=== PATIENT | female | born 2005 | race Caucasian/White ===

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

== ENCOUNTER 2025-02-04 13:03 | Outpatient (AMB) | payer OTHER, SELFPAY ==
--- NOTE | 2025-02-04 13:17 | A.OFFVIS_ITS ---
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 I initially saw her in 2020 mostly for headaches. She was back stating that she had a seizure after long time. She was in her bed watching television when something happened. She remembered sharp feeling in right occipital area and then she found herself after the spell in a confused state. He was also having frequent headaches, almost daily, and sometime more than once. Pain usually was right frontal. She is presenting for evaluation of a suspected seizure that occurred two nights ago. She reports a history of seizures as a child, but this was the first episode she has had since then. The event occurred while she was watching TV in bed. Prior to the event, she experienced a sensation in her right occipital area, which she describes as a pinched nerve or being hit by a basketball; this sensation has been occurring more frequently of late. She has no memory of the event itself but woke up in a confused state with tingling sensations. She was still in her bed when she regained awareness and denies any fall, physical i njury, or urinary incontinence. The episode was unwitnessed. The patient also reports worsening headaches, which occur almost daily and sometimes two times a day. She indicates the pain is on the right side of her head and notes that applying counter-pressure to the back of her head helps relieve the pressure. She reports being seen for headaches in 2020. 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 She denies having any metal in her body. Review of Systems Narrative Constitutional:?No fever, chills, fatigue, weight loss, or night sweats. HEENT:?No headache, vision changes, hearing loss, nasal congestion, sore throat. Cardiovascular:? Complain of irregular heartbeat Respiratory:?No cough, shortness of breath, wheezing, or hemoptysis. Gastrointestinal:?No nausea, vomiting, abdominal pain, diarrhea, or constipation. Genitourinary:?No dysuria, frequency, incontinence, or hematuria. Musculoskeletal:?No joint pain, stiffness, weakness, or muscle aches. Neurological:? Complain of weakness, numbness tingling, sleep problems, and seizure Psychiatric:? Complain of depression Endocrine:?No heat/cold intolerance, polydipsia, polyuria, or hair/skin changes. Hematologic/Lymphatic:?No easy bruising, bleeding, or lymphadenopathy. Integumentary (Skin):?No rash, lesions, itching, or color changes. Allergic/Immunologic:?No seasonal allergies, hives, or recurrent infections. Physical Exam Neuro Other: Mental Status: Alert and oriented to person, place, and time. Normal attention. Normal spontaneous speech, fluency, and comprehension. No obvious issues with mood and memory. Affect is appropriate. Cranial Nerves: CN II: Visual wolf full to confrontation, visual acuity intact. CN III, IV, : Pupils equal, round, reactive to light and accommodation. Extraocular movements are normal. CN V: Facial sensation is normal. CN VII: Facial movements symmetrical. CN VIII: Hearing intact to bedside conversation is normal. CN IX, X: Palate elevates symmetrically. CN XI: Shoulder shrug and head turn symmetrical. CN XII: Tongue midline without atrophy or fasciculations. Motor: Bulk and tone normal in all extremities. No significant muscle weakness in arms and legs. No drift. Reflexes: Deep tendon reflexes 2+ and symmetric. Plantar response down-going bilaterally. Coordination: [id number] and [id number] testing normal. No dysmetria. Gait and Station: No obvious gait abnormality. No ataxia or instability. Sensory: Intact to light touch, pinprick, and vibration. Romberg is negative. Extrapyramidal: Full facial expressions and blinking. No rigidity. Movements are appropriate with no tremor or abnormality. Speech: Normal; no dysarthria or tremor. Assessment & Plan Assessment & Plan (1) Migraine without aura: Comment: Meds tried: Topamax [place] [facility] [place]: borderline Chiari I, Left occipital lesion, ?d[facility]plasia [facility] August 2020: TST AHI 2, w/o desat MRI brain WO at [facility] in 2005: Mild WM sig abnormalities, ?metabolic do MRI brain WO at [facility] in 2006: Mild WM sig abnormalities in post lobes, ?etiology MRI brain WO at [facility] in 2007: Looks ok but mild WM abnormalities described as befor eMRI brain WO at [facility] in 2013: mild WM hyperintesity close to L post horn, Arnold Chiari 1. Code(s): G43.009 - Migraine without aura, not intractable, without status migrainosus Category: Medical Qualifiers: Status migrainosus presence: without status migrainosus Intractability: not intractable Qualified Code(s): G43.009 - Migraine without aura, not intractable, without status migrainosus (2) Brain lesion: Code(s): G93.9 - Disorder of brain, unspecified Category: Medical Plan Impression: 1. 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 Migraine without aura 4. Depression with family history of mental disorder Recommendations 1. Reassurance and education regular counseling 2. EEG 3. MRI of brain with and without contrast 4. No driving until this issue is diagnosed and managed Orders: Orders MR head/brain wo/w con Today G40.909 - Epilepsy, unspecified, not intractable, without status epilepticus, G93.9 - Disorder of brain, unspecified EEG Routine Today G40.909 - Epilepsy, unspecified, not intractable, without status epilepticus Coding Level of Care Code New Pt Level 4 (02811) Diagnoses Migraine without aura and without status migrainosus, not intractable G43.009 Status migrainosus presence: without status migrainosus Intractability: not intractable Brain lesion G93.9
--- OUTSIDE RECORDS SUMMARY | 2025-02-05 04:37 | XMS_ITS | Clinical Summary ---
Author Organization [facility] [address] [facility] lding Address [address] [place] [address] Phone Care Team Providers Care Cna Hha Name Role Phone Mick Dumont MD Primary Care Provider Allergies No known active allergies Medications blood-glucose meter kit Use as directed for monitoring of low blood sugars 1 each 07/19/19 25 026 Active varenicline tartrate (CHANTIX JV) 0.5 mg (11)- 1 mg (42) tablet Take 0.5 mg by mouth 1 (one) time each day for 3 days (days 1-3), THEN 0.5 mg 2 (two) times a day for 4 days (days 4-7), THEN 1 mg 2 (two) times a day for 12 weeks. 53 tablet 1 08/15/19 25 Active nicotine (NICODERM CQ) 14 mg/[address] 1 PATCH ON THE SKIN 1 TIME EACH DAY AT THE SAME TIME. 42 patch 3 08/27/19 25 Active norethindrone (KINZA,CUONG,HEA THER,MICRONOR) 0.35 mg tablet TAKE 1 TABLET BY MOUTH 1 TIME EACH DAY. 84 tablet 1 10/15/19 25 Active glucose blood test strip Use as directed for monitoring of low blood sugars. Freestyle 100 each 1 11/07/19 25 026 Active lancets lancets Use as directed for monitoring of low blood sugars. Free style 100 each 1 11/07/19 25 Active magnesium oxide (MAG-OX) 400 mg magnesium tablet Take 1 tablet (400 mg total) by mouth 1 (one) time each day. 90 tablet 3 01/22/20 25 Active SUMAtriptan (IMITREX) 50 mg tablet Take 1 tablet (50 mg total) by mouth 1 (one) time if needed for migraine. May repeat dose once in 2 hours if no relief. Do not exceed 2 doses in 24 hours. 90 tablet 1 01/22/20 25 Active topiramate (TOPAMAX) 50 mg tablet Take 1 tablet (50 mg total) by mouth 1 (one) time each day. 90 each 1 01/22/20 25 Active etonogestrel-elut ing contraceptive device (Nexplanon) 68 mg implant subdermal implant Inject 68 mg into the skin Once. 07/15/19 22 025 Discontin ued(Patie nt Discharge ) magnesium oxide (MAG-OX) 400 mg magnesium tablet Take 1 tablet (400 mg total) by mouth 1 (one) time each day. 90 tablet 11/07/19 025 Discontin ued(Reord er) Active Problems Problem Noted Date Diagnosed Date Prediabetes 07/16/2024 Vitamin D deficiency 07/16/2024 ADHD (attention deficit hype ractivity disorder), inattentive type 07/12/2024 Tic disorder 07/12/2024 Chiari malformation type I ([facility] V24, CMS/HCC V28) 06/10/2021 Overview (12/19/2023): Diagnosed in childhood Migraines 06/10/2021 Overview (12/19/2023): Followed by Neuro Darcyx as needed History of learning disability Overview (01/25/2024): DX:History of learning disability Encounters Date Type Department Care Team Description 01/31/2025 Telephone Adult Medicine [address] [phone] Mick Dumont MD 01/21/2025 2:30 PM EST Office Visit Adult Medicine [address] [phone] Mick Dumont MD Hypoglycemia (Primary Dx); Viral warts, unspecified type; Other migraine without status migrainosus, not intractable 11/19/2024 Telephone Adult Medicine [address] [phone] Mick Dumont MD 11/06/2024 1:00 PM EDT Office Visit [address] [phone] Mick Dumont MD Hypomagnesemia (Primary Dx); Hypoglycemia; Tobacco dependency; Chiari malformation type I ([facility] V24, [facility] V28) from Last 3 Months Immunizations Immunization Administration Dates Next Due DTaP (Infanrix) 6wks to less than 7yo ,11/02/2005,01/26/2005,11/23,2004 [id number] (Pentacel) 2mo to less than 5yo 12/15/2005,01/26/2005,2004,07/08 HPV, Quadrivalent 12/11/2015,08/10/2015,06/13/19 16 Hep B, Unspecified 2004 Hepatitis A Pediatric (Havri x; Vaqta) 12mo to less than 19yo 02/09/2009,06/27/2008 IPV Inactivated polio (Ipol) 6wks and older 05/07/2008,01/26/2005,2004,07/08 Influenza Quadravalent, MDCK , 0.5ml, preservative free (Flucelvax) 6mo and older 05/26/2023 Influenza Quadrivalent, 0.5m l, preservative free (Fluarix; FluLaval; Fluzone) ages 6mo and older (Afluria) 3yo and older 12/03/2021,02/10/2021 Influenza trivalent, MDCK, 0 .5mL, preservative free (Flucelvax) 6mo and older 12/21/2023 Influenza trivalent, with pr eservative (Fluzone; Afluria) 6mo and older 01/03/2020 MMR, measles mumps and rubel la Live (Priorix; M-M-R II) 12mo and older 06/27/2008,05/05/2005 Meningococcal B, Recombinant (Bexsero) 16yo to less than 24yo 12/03/2021,07/14/2020 Meningococcal MCV4P 05/06/2020,06/10/2015 Pneumococcal Conjugate Vacci ne, 7 Valent 12/13/2005,01/26/2005,2004,07/08 Pneumococcal polysaccharide 23 valent (Pneumovax 23) 2yo and older 06/10/2015 Tdap Tetanus diptheria acell ular pertussis (Boostrix; Adacel) 7yo and older 01/25/2024 Varicella live (Varivax) 12m o and older 05/07/2008,05/05/2005 Medical History Medical History Date Comments History of learning disability Chiari malformation type I ([facility] V24, [facility] V28) Migraines Family History Medical History Relation Name Comments Schizophrenia Father Other: Epilepsy Father's side 1 Other: Spina Bifida Father's side 2 cousin Diabetes Mother Other: hx tia Mother Breast cancer Neg Hx Ovarian cancer Neg Hx Relation Name Status Comments Father Alive Father's side 1 Alive Father's side 2 cousin Alive Mother Alive Social History Tobacco Use Types Packs/Day Years Used Date Smoking Tobacco: Every Day Smokeless Tobacco: Never Tobacco Cessation:Ready to Q uit: Not Asked; Counseling Given: Not Answered Comments:Vapes nicotine Alcohol Use Standard Drinks/Week Comments Yes 0 (1 standard drink = 0.6 oz pure alcohol) At events with friends, 2-3 drinks Housing Instability Answer Date Recorde d Are you worried that in the next 2 months you may not have stable housing? Patient declined 05/24/2024 Food Access & Nutrition Answer Date Rec orded Do you have access to a vari ety of food including fruits and vegetables? Patient declined 05/24/2024 Health Literacy Answer Date Recorded How often do you need to hav e someone help you when you read instructions, pamphlets, or other written material from your doctor or pharmacy? Patient declined 05/24/2024 Caregiver: How often do you need to have someone help you when you read instructions, pamphlets, or other written material from your doctor or pharmacy? Not on file 025 Financial Risk Answer Date Recorded How hard is it for you to pa y for the very basics like food, housing, medical care, and air conditioning / heating? Somewhat hard 05/24/2024 Transportation Answer Date Recorded Has the lack of transportati on kept you from meetings, work, or from getting things needed for daily living? Patient declined 05/24/2024 Has the lack of transportati on kept you from medical appointments or from getting medications? Patient declined 05/24/2024 Social Isolation Answer Date Recorded How often do you feel lonely or isolated from those around you? Patient declined 05/24/2024 Food Risk Answer Date Recorded Within the past 12 months we worried whether our food would run out before we got money to buy more. Never true 05/24/2024 Within the past 12 months th e food we bought just didn't last and we didn't have money to get more. Never true 05/24/2024 Dependent Care Answer Date Recorded Do you need help finding or paying for care for your loved ones. For example, childhood development teacher or elderly care for an older adult? Patient declined 05/24/2024 Education Answer Date Recorded Do you think completing more education or training, like finishing a GED, going to college, or learning a trade, would be helpful for you? Patient declined 05/24/2024 Employment and Income Answer Date Recor ded During the last four weeks, have you been actively looking for work? Patient declined 05/24/2024 Living Situation Answer Date Recorded What is your living situation? 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 [employer] Not on file Not on file Not on file Obstetrics History Para Term AB IAB SAB Ectopic Multiple Livin g Live Births 0 0 0 0 0 0 0 0 Last Filed Vital Signs Vital Sign Reading Time Taken Comments Blood Pressure 108/73 01/21/2025 2:03 PM EST Pulse 85 01/21/2025 2:03 PM EST Temperature 36.4 C (97.6 F) 01/21/2025 2:03 PM EST Respiratory Rate 16 01/21/2025 2:03 PM EST Oxygen Saturation 97% 01/21/2025 2:03 PM EST Inhaled Oxygen Concentration - - Weight 96.4 kg (212 lb 9.6 oz) 01/21/2025 2:03 P M EST Height 167.6 cm (5' 6 ) 01/21/2025 2:03 PM EST Body Mass Index 34.31 01/21/2025 2:03 PM EST Plan of Treatment Upcoming Encounters Date Type Department Care Team (Late st Contact Info) Description 02/24/2025 10:40 AM EST Consult Endocrinology [address] [phone] Cristian Grey MD [address] [place] [address] 03/07/2025 9:45 AM EST Office Visit Adult Medicine [address] [phone] Mick Dumont MD [address] [place] [address] 05/09/2025 12:30 PM EST Office Visit Adult Medicine [address] [phone] Ladan Jha PA [address] [place], [place] Health Maintenance Due Date Last Done Comments COVID-19 Vaccine ( season) 2024 12/21/2023, 05/26/2023, 10/31/2021, Additional history exists Hepatitis B Vaccines (3 of 3 - 3-dose series) 01/13/2025 11/18/2024, 2004 Social Influencers of Health Screening 05/24/2025 05/24/2024 Annual Well Child Visit (3-21 years old) 07/24/2025 07/24/2024, 01/25/2024 Gonorrhea/Chlamydia Screening 07/24/2025 07/24/2024, 10/03/2023 Cholesterol Screening (Lipid Panel) 01/24/2029 01/25/2024 DTaP,Tdap,and Td Vaccines (7 - Td or Tdap) 01/24/2034 01/25/2024, 06/27/2008, 12/15/2005, Additional history exists Pneumococcal Vaccine: Pediatrics (0 to 5 Years) and At-Risk Patients (6 to 49 Years) (2 of 2 - PCV20 or PCV21) 2054 06/10/2015, 12/13/2005, 01/26/2005, Additional history exists RSV Immunization Adult Patients (1 - 1-dose 75+ series) 2079 HIB Vaccines Completed 12/15/2005, 11/2004, 2004, Additional history exists IPV Vaccines Completed 05/07/2008, 11/19, 01/26/2005, Additional history exists Varicella Vaccines Completed 05/07/2008, 05/05/2005 MMR Vaccines Completed 06/27/2008, 05/05/2005 Hepatitis A Vaccines Completed 02/09/2009, 06/28/19 09 HPV Vaccines Completed 12/11/2015, 07/19, 06/13/2015 Meningococcal ACWY Vaccine Completed 05/06/2020, Meningococcal B Vaccine Completed 12/03/2021, 07/14 Hepatitis C Screening Completed 08/11/2022 HIV Screening Completed 07/24/2024, 08/11/2022 Influenza Vaccine Completed 11/18/2024, , 05/26/2023, Additional history exists Depression Screening Completed 01/21/2025 RSV Immunization Patients Under 20 months Aged Out No longer eligible based on patient's age to complete this topic Procedures Procedure Name Priority Date/Time Associated Diagnosis Comments MAGNESIUM Routine 11/05/2024 1:59 PM EDT Magnesium deficiency VITAMIN D 25 HYDROXY Routine 11/05/2024 1:59 PM EDT Vitamin D deficiency INSULIN, TOTAL Routine 11/05/2024 1:59 PM EDT Hypoglycemia C-PEPTIDE Routine 11/05/2024 1:59 PM EDT Hypoglycemia PROINSULIN Routine 11/05/2024 1:59 PM EDT Hypoglycemia SULFONYLUREA Routine 11/05/2024 1:59 PM EDT Hypoglycemia CORTISOL Routine 11/05/2024 1:59 PM EDT Hypoglycemia HIV 1, 2 ANTIBODY, P24 ANTIGEN WITH REFLEX TO DIFFERENTIATION Routine 07/24/2024 3:06 PM EDT Screen for STD (sexually transmitted disease) CHLAMYDIA TRACHOMATIS AND NEISSERIA GONORRHOEAE PCR Routine 07/24/2024 2:51 PM EDT Screen for STD (sexually transmitted disease) LIPID PANEL WITH REFLEX TO DIRECT LDL Routine 01/25/2024 3:37 PM EST Routine general medical examination at a health care facility HEPATITIS C SCREENING Routine 08/11/2022 from Last 3 Months or Most Recently Relevant to Health Maintenance Results * Sulfonylurea (11/05/2024 1:59 PM EDT) Acetohexamide Negative 20 - 60 ug/mL 11/14/2024 11:05 AM EDT [facility] Chlorpropamide Negative 75 - 250 ug/mL 11/14/2024 11:05 AM EDT [facility] Tolazamide Negative UP TO 80 ug/mL 11/14/2024 11:05 AM EDT [facility] Tolbutamide Negative 40 - 100 ug/mL 11/14/2024 11:05 AM EDT [facility] Glimepiride Negative 80 - 250 ng/mL 11/14/2024 11:05 AM EDT [facility] Glipizide Negative 200 - 1000 ng/mL 11/14/2024 11:05 AM EDT [facility] Glyburide Negative UP TO 1500 ng/mL 11/14/2024 11:05 AM EDT [facility] [place] [address] ng/mL 11/14/2024 11:05 AM EDT [facility] Repaglinide Negative UP TO 200 ng/mL 11/14/2024 11:05 AM EDT [facility] Comment: This test was developed and its performance characteristics determined by [facility]. It has not been cleared or approved by the Food and Drug Administration. Blood Venous blood specimen / Unknown Venipuncture / Unknown 11/05/2024 1:59 PM EDT 11/05/2024 1:59 PM EDT Narrative [facility] - 11/14/2024 11:05 AM EDT Performed at: - [employer] [address] [place] [address] [id number] [employer] Supervisor: Precious Chacon [facility], Phone: [phone] Mick Dumont MD LAB BLOOD ORDERABLES F inal Result Performing Organization Address City/[facility]/ZIP Co de Phone Number [facility] * (ABNORMAL) Insulin, total (11/05/2024 1:59 PM EDT) [facility] Insulin 29.6(H) 3.0 - 25.0 mcIU/mL LAB CHEMISTRY METHOD 11/05/2024 6:12 PM EDT [facility] Blood Venous blood specimen / Unknown Venipuncture / Unknown 11/05/2024 1:59 PM EDT 11/05/2024 1:59 PM EDT Narrative [facility] - 11/05/2024 6:12 PM EDT Insulin reference range based on fasting status. Insulin values vary in non-fasting individuals. us Mick Dumont MD LAB BLOOD ORDERABLES F inal Result Performing Organization Address City/[facility]/ZIP Co de Phone Number [facility] [address] [place] [address], [place] [phone] * Proinsulin (11/05/2024 1:59 PM EDT) Pathologist [facility] Proinsulin, Intact <2.0 <=7.2 pmol/L 11/12/2024 8:23 AM EDT [facility] Comment: Performed By: [employer] [address] [place] [id number] Import/Export Analyst: Donnell Nichols MD, PhD CLIA Number: [id number] Blood Venous blood specimen / Unknown Venipuncture / Unknown 11/05/2024 1:59 PM EDT 11/05/2024 1:59 PM EDT Mick Dumont MD LAB BLOOD ORDERABLES F inal Result [facility] [address] [place] [address] * Vitamin D 25 hydroxy (11/05/2024 1:59 PM EDT) [facility] Vit D, 25-Hydroxy 34.6 30.0 - 80.0 ng/mL LAB CHEMISTRY METHOD 11/05/2024 5:42 PM EDT [facility] Blood Venous blood specimen / Unknown Venipuncture / Unknown 11/05/2024 1:59 PM EDT 11/05/2024 1:59 PM EDT Ladan YANG LAB BLOOD ORDERABLES Final Resul t [facility] [address] [place] [address], [place] [phone] * C-peptide (11/05/2024 1:59 PM EDT) [facility] C-Peptide 3.85 0.80 - 3.90 ng/mL LAB CHEMISTRY METHOD 11/05/2024 5:43 PM EDT [facility] Blood Venous blood specimen / Unknown Venipuncture / Unknown 11/05/2024 1:59 PM EDT 11/05/2024 1:59 PM EDT us Mick Dumont MD LAB BLOOD ORDERABLES F inal Result Performing Organization Address [facility]/ZIP Co de Phone Number [facility] [address] [place] [address], [place] [phone] * (ABNORMAL) Magnesium (11/05/2024 1:59 PM EDT) Magnesium 1.7(L) 1.9 - 2.6 mg/dL LAB CHEMISTRY METHOD 11/05/2024 4:51 PM EDT [facility] Blood Venous blood specimen / Unknown Venipuncture / Unknown 11/05/2024 1:59 PM EDT 11/05/2024 1:59 PM EDT us Ladan YANG LAB BLOOD ORDERABLES Final Resul t Performing Organization Address [facility] de Phone Number [facility] [address] [place] [address], [place] [phone] * Cortisol (11/05/2024 1:59 PM EDT) Cortisol 14.3 mcg/dL LAB CHEMISTRY METHOD 11/05/2024 5:20 PM EDT [facility] Blood Venous blood specimen / Unknown Venipuncture / Unknown 11/05/2024 1:59 PM EDT 11/05/2024 1:59 PM EDT Narrative [facility] - 11/05/2024 5:20 PM EDT CORTISOL REFERENCE RANGE 8 AM SPEC: 5.0-23.0 mcg/dL 4 PM SPEC: 3.0-16.0 mcg/dL 8 PM SPEC: <5.0 mcg/dL us Mick Dumont MD LAB BLOOD ORDERABLES F inal Result Performing Organization Address City/[facility]/ZIP Co de Phone Number [facility] [address] [place] [address], [place] [phone] * HIV 1,2 antibody, p24 antigen with reflex to differentiation (07/24/2024 3:06 PM EDT) Pathologist [facility] HIV Combo AB/AG Negative Negative LAB CHEMISTRY METHOD 07/24/2024 8:20 PM EDT [facility] Blood Venous blood specimen / Unknown Venipuncture / Unknown 07/24/2024 3:06 PM EDT 07/24/2024 3:06 PM EDT Narrative [facility] - 07/24/2024 8:20 PM EDT This assay is a 4th generation assay allowing for earlier detection of HIV infection by detecting the presence of the HIV-1 p24 antigen as well as the traditional antibodies to HIV type 1 (including group O) and type 2. Use of a 4th generation assay is the current CDC recommendation for HIV screening. Mary WOODS LAB BLOOD ORDERABLES Final R esult Performing Organization Address [facility] de Phone Number [facility] [address] [place] [address], [place] [phone] * Chlamydia trachomatis and Neisseria gonorrhoeae molecular study (07/24/2024 2:51 PM EDT) Pathologist [facility] Neisseria gonorrhoeae PCR Negative Negative LAB MOLECULAR DIAGNOSTICS METHOD 07/25/2024 9:51 AM EDT [facility] Chlamydia trachomatis PCR Negative Negative LAB MOLECULAR DIAGNOSTICS METHOD 07/25/2024 9:51 AM EDT [facility] Swab Vaginal structure / Unknown Non-blood Collection / Unknown 07/24/2024 2:51 PM EDT 07/24/2024 2:51 PM EDT Mary Fitzgerald CNM LAB MICROBIOLOGY - GENERAL O RDERABLES Final Result Performing Organization Address [facility]/State/ZIP Co de Phone Number [facility] [address] [place] [address], [place] [phone] * Lipid panel with reflex to direct LDL (01/25/2024 3:37 PM EST) Cholesterol 129 0 - 200 mg/dL LAB CHEMISTRY METHOD 01/25/2024 5:44 PM EST [facility] Triglycerides 53 0 - 150 mg/dL LAB CHEMISTRY METHOD 01/25/2024 5:44 PM EST [facility] HDL 63 >=40 mg/dL LAB CHEMISTRY METHOD 01/25/2024 5:44 PM EST [facility] LDL Calculated 55 0 - 100 mg/dL LAB CHEMISTRY METHOD 01/25/2024 5:44 PM EST [facility] VLDL Cholesterol Dre 10.6 mg/dL LAB CHEMISTRY METHOD 01/25/2024 5:44 PM EST [facility] Non HDL Chol. (LDL+VLDL) 66 <145 mg/dL LAB CHEMISTRY METHOD 01/25/2024 5:44 PM EST [facility] Chol/HDL Ratio 2.0 0.0 - 4.4 LAB CHEMISTRY METHOD 01/25/2024 5:44 PM EST [facility] Blood Venous blood specimen / Unknown Venipuncture / Unknown 01/25/2024 3:37 PM EST 01/25/2024 3:38 PM EST Shyanne YANG LAB BLOOD ORDERABLES Final Result [facility] [address] [place] [address], [place] [phone] * Hepatitis C Screening (08/11/2022) Hepatitis C Screening Abstracted Historical Provider MD HEALTH MAINTENANCE Final Result from Last 3 Months or Most Recently Relevant to Health Maintenance Insurance [facility] Care Teams Cna Hha Relationship Specialty Start Date End Date Mick Dumont MD [address] [place] [address] PCP - General Internal Medicine 03/18/24
--- OUTSIDE RECORDS SUMMARY | 2025-02-05 04:37 | XMS_ITS | Data Portability ---
Author Organization [facility], [address] Address [address] [place] [address] Assessment No assessment recorded. Plan of Treatment Reminders Order Date Submit Date Provider Last Modified By Organization Details Last Modified Time Details Appointments None record ed. Lab None record ed. Referral None record ed. Procedures None record ed. Surgeries None record ed. Imaging None record ed. Medication Orders None record ed. Patient TargetsNo targets recorded. Patient Instructions Encounter Date Encounter Id Patient Instructions Last Modified By Organization Details Last Modified Time 06/14/2022 [id number] Patient is cleared physically to participate in school/sports activities without restrictions. Return to [facility] as needed. [email or web address] Not available 06/14/2022 12:09:58 Reason for Referral None Reported. Medical Equipment None Reported. Medications Name Sig Start Date Stop Date Status Note LastModified by Organization Details LastModified Time fluconazole 150 mg tablet TAKE ONE TAB TODAY, IF NO IMPROVEMENT IN 3 DAYS THEN TAKE 2ND DOSE active Not Available Not Available No t Available clotrimazole -betamethaso ne 1 %-0.05 % topical cream APPLY TOPICALLY TO AFFECTED AREA TWICE DAILY FOR NO MORE THAN 10 DAYS active Not Available Not Available No t Available propranolol 20 mg tablet TAKE 1 TABLET BY MOUTH TWICE A DAY FOR 90 DAYS active Not Available Not Available No t Available topiramate 50 mg tablet TAKE 1 TABLET BY MOUTH EVERY DAY active Not Available Not Available No t Available [employer] At-Home COVID-19 Test kit USE DIRECTED active Not Available Not Available No t Available Vitals Date Recorded Body height Body mass index (BMI) [Percentile] Per age and sex Body mass index (BMI) Body weight Oxygen saturation Oxygen saturation in Arterial blood by Pulse oximetry Pain severity - 0-10 verbal numeric rating [Score] - Reported Heart rate Respiratory rate Body temperature Systolic And Diastolic Provider Name and Address Organization Details Last Updated DateTime 3 170.82 cm 88 % 26.7 kg/m2 27010.8 9 g 100 % 100 % 0 72 /min 20 /min 97.5 [degF] 114/72 mm[Hg] LIDIA LEIGH PA - [facility] 3 10:34:34 Social History None recorded. Functional Status None recorded. Mental Status None recorded. Family History Nothing Reported. Medical History No medical history recorded. Gynecological HistoryNo gynecological history recorded. Obstetrics History GPAL:G 0 P 0 0 0 0 Past Encounters Encounter ID Performer Location Encounter Start Date Encounter Closed Date Diagnosis/Indication Diagnosis SNOMED-CT Code Diagnosis ICD10 Code Diagnosis IMO Codes Diagnosis Note [id number] [address] [place] [address] 04/25/2021 13:19:48 04/25/2021 14:19:45 [id number] [place] [address] [place] [address] 06/14/2022 10:06:52 06/14/2022 12:10:45 History and physical examination, sports participation 094864247 Z02.5 Health Concerns Section Related Observation LastModified by Organization Detai ls LastModified Time None Recorded Concern Status LastModified by Organization Details LastModified Time None Recorded Advance Directives Directive None Recorded Payers Insurance Date Sequence Insurance Name Policy Number Policy Chawla Covered Member ID Chawla Member ID Guarantor Name 06/14/2022 FEE FOR SERVICE Jaelyn Anders Notes Date Note Type Note Provider Name a nd Address Organization Details Recorded Time 06/14/2022 text/html physical Tex Valverde NP [address] [place], [address], [place] - [facility] 06/14/2022 12:10:29 OBGyn Episode No OBEpisode recorded.
--- OUTSIDE RECORDS SUMMARY | 2025-02-05 04:37 | XMS_ITS ---
Author Name [facility] Organization Unknown Care Team Organization Name Specialty Phone Email Start Date End Da te [facility] Sanjay Do Primary Care 12/21/2022 11/06/2023 [facility] Brian Michaud Primary Care 08/26/202211/05
--- OUTSIDE RECORDS SUMMARY | 2025-02-05 04:39 | XMS_ITS | Encounter Summary ---
Author Organization [facility] Address [address] [place] [address] Care Team Providers Care Warehouse Team Leader Name Role Phone Mick Dumont MD Primary Care Provider Reason for Visit * Reason Onset Date Comments concerns 01/31/2025 Encounter Details Date Type Department Care Team (Late st Contact Info) Description 01/31/2025 Telephone Adult Medicine [facility] [address] [place] [phone] Mick Dumont MD [address] [place] [phone] Social History Tobacco Use Types Packs/Day Years Used Date Smoking Tobacco: Every Day Smokeless Tobacco: Never Comments:Vapes nicotine Alcohol Use Standard Drinks/Week Comments [...] care for your loved ones. For example, child attendant or elderly care for an older adult? 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 Was addressing concerns with her head. Can you please call patient? documented in this encounter Plan of Treatment Upcoming Encounters Date Type Department Care Team (Late st Contact Info) Description 02/24/2025 10:40 AM EST Consult Endocrinology - [address] [phone] Cristian Grey MD [address] [place] [address] 03/07/2025 9:45 AM EST Office Visit Adult Medicine [address] [phone] Mick Dumont MD [address] [place] [address] 05/09/2025 12:30 PM EST Office Visit Adult Medicine [address] [phone] Ladan Jha PA [address] [place] [address] documented as of this encounter Visit Diagnoses Not on filedocumented in this encounter Additional Health Concerns Assessment Noted Time PHQ-9 Depression Total Score: 0 01/22/20 25 2:02 PM EST documented as of this encounter Care Teams Warehouse Team Leader Relationship Specialty Start Date End Date Mick Dumont MD [address] [place] [address] PCP - General Internal Medicine 03/18/24 documented as of this encounter
== END 2025-02-04 13:40 | disposition home or self-care (01) ==
PROVIDERS: Visit Provider Psychiatry & Neurology Neurology
DX: G43.009 Migraine without aura, not intractable, without status migrainosus (principal); G93.9 Disorder of brain, unspecified
CPT/HCPCS: 99204

== ENCOUNTER → 2025-02-04 13:03 | Outpatient (BNVA) | payer OTHER, SELFPAY | PROVIDERS: Visit Provider Psychiatry & Neurology Neurology | DX: G43.009 Migraine without aura, not intractable, without status migrainosus (principal); G93.9 Disorder of brain, unspecified | CPT/HCPCS: 99202 ==

== ENCOUNTER 2025-03-10 08:17 | Outpatient (REF) | payer OTHER, SELFPAY ==
--- OUTSIDE RECORDS SUMMARY | 2025-03-07 09:45 | XMS_ITS | Encounter Summary ---
Author Organization [facility] Address [address] [place] [address] Care Team Providers Care Bushing Press Operator Name Role Phone Mick Dumont MD Primary Care Provider Reason for Visit * Reason Comments Follow-up [facility] - viral gastroen teritis Encounter Details Date Type Department Care Team (Late st Contact Info) Description 03/07/2025 9:45 AM EST Office Visit Adult Medicine [address] [phone] Mick Dumont MD [address] [place], [place] Gastroenteritis (Primary Dx) Social History Tobacco Use Types Packs/Day Years Used Date Smoking Tobacco: Never Smokeless Tobacco: Never Tobacco Cessation:Counseling Given: Not Answered Comments:Vapes nicotine Alcohol Use [...] for your loved ones. For example, child and adolescent psychologist or elderly care for an older adult? 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 Not on file documented as of this encounter Last Filed Vital Signs Vital Sign Reading Time Taken Comments Blood Pressure 107/74 03/07/2025 9:36 AM EST Pulse 67 03/07/2025 9:36 AM EST Temperature 36.3 C (97.3 F) 03/07/2025 9:36 AM EST Respiratory Rate 16 03/07/2025 9:36 AM EST Oxygen Saturation 98% 03/07/2025 9:36 AM EST Inhaled Oxygen Concentration - - Weight 96.3 kg (212 lb 6.4 oz) 03/07/2025 9:36 A M EST Height 167.6 cm (5' 6 ) 03/07/2025 9:36 AM EST Body Mass Index 34.28 03/07/2025 9:36 AM EST documented in this encounter Ordered Prescriptions Prescription Sig Dispense Quantity Refills Last Filled Start Date End Date ondansetron ODT (ZOFRAN-ODT) 4 mg disintegrating tablet Dissolve 1 tablet (4 mg total) on top of the tongue every 8 (eight) hours if needed for nausea or vomiting. 270 tablet 03/07/2025 documented in this encounter Progress Notes * Hattie Gonzalez MA - 03/07/2025 9:45 AM EST Visit Vitals BP 107/74 Pulse 67 Temp 36.3 ??C (97.3 ??F) (Temporal) Resp 16 Ht 1.676 m (66 ) Wt 96.3 kg (212 lb 6.4 oz) LMP 02/26/2025 SpO2 98% BMI 34.28 kg/m?? OB Status Having periods Smoking Status Never BSA 2.05 m?? Depression Screening Will the patient answer the depression risk questions?: Yes Over the last 2 weeks, how often have you been bothered by little interest or pleasure in doing things?: Not at all Over the last 2 weeks, how often have you been bothered by feeling down, depressed, or hopeless?: Several days Depression Risk: 1 Additional Depression Screening PHQ -9 Depression Risk Score: 1 Screening Result: Negative Risk Category: Negative * Mick Dumont MD - 03/07/2025 9:45 AM EST SUBJECTIVE: Jaelyn Mcnamara is a 19 y.o. female who presents today for Chief Complaint Patient presents with Follow-up [facility] - viral gastroenteritis HPI: Patient presenting for ER discharge follow-up. Was seen recently for gastroenteritis. Still continues to have nausea and vomiting. Still occasionally has nonbloody diarrhea. She is able to maintain good oral intake. Current Meds: Current Medications[1] Allergies: Allergies[2] Immunizations: Immunization History Administered Date(s) Administered COVID-19 (Pfizer/Comirnaty) 12yo and older 05/26/2023, 12/21/2023 DTaP (Infanrix) 6wks to less than 7yo 2004, 2004, 01/26/2005, 11/02/2005, 06/27/2008 [id number] (Pentacel) 2mo to less than 5yo 2004, 2004, 01/26/2005, 12/15/2005 HPV, Quadrivalent 06/13/2015, 08/10/2015, 12/11/2015 Hep B Immune Globulin 2004, 2004, 2004, 01/26/2005 Hep B, Unspecified 2004 Hepatitis A Pediatric (Havrix; Vaqta) 12mo to less than 19yo 06/27/2008, 02/09/2009 IPV Inactivated polio (Ipol) 6wks and older 2004, 2004, 01/26/2005, 05/07/2008 Influenza Quadravalent, MDCK, 0.5ml, preservative free (Flucelvax) 6mo and older 05/26/2023 Influenza Quadrivalent, 0.5ml, preservative free (Fluarix; FluLaval; Fluzone) ages 6mo and older (Afluria) 3yo and older 02/10/2021, 12/03/2021 Influenza trivalent, MDCK, 0.5mL, preservative free (Flucelvax) 6mo and older 12/21/2023 Influenza trivalent, with preservative (Fluzone; Afluria) 6mo and older 01/03/2020 MMR, measles mumps and rubella Live (Priorix; M-M-R II) 12mo and older 05/05/2005, 06/27/2008 Meningococcal B, Recombinant (Bexsero) 16yo to less than 24yo 07/14/2020, 12/03/2021 Meningococcal MCV4P 06/10/2015, 05/06/2020 Pfizer (ages 12 & older) SARS-CoV-2 COVID-19, mRNA, LNP-S, yara-sucrose, preservative free 10/10/2021, 10/31/2021 Pneumococcal Conjugate Vaccine, 7 Valent 2004, 2004, 01/26/2005, 12/13/2005 Pneumococcal polysaccharide 23 valent (Pneumovax 23) 2yo and older 06/10/2015 Tdap Tetanus diptheria acellular pertussis (Boostrix; Adacel) 7yo and older 01/25/2024 Varicella live (Varivax) 12mo and older 05/05/2005, 05/07/2008 Active Problems: Problem List[3] HISTORY: Medical History[4] Surgical History[5] Family History[6] Social History Socioeconomic History Marital status: Single Spouse name: Not on file Number of children: Not on file Years of education: Not on file Highest education level: Not on file Occupational History 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[employer], [employer] Tobacco Use Smoking status: Never Smokeless tobacco: Never Tobacco comments: Vapes nicotine Vaping Use Vaping status: Every Day Substance and Sexual Activity Alcohol use: Yes Comment: At events with friends, 2-3 drinks Drug use: Not Currently Types: Marijuana/Cannabis Sexual activity: Not on file Other Topics Concern Not on file Social History Narrative Not on file ROS: GENERAL: Negative for malaise, significant weight loss and fever RESPIRATORY: No cough, wheezing or shortness of breath CARDIOVASCULAR: Negative for chest pain, leg swelling and palpitations VITAL SIGNS Vitals: 03/07/25 0936 BP: 107/74 Pulse: 67 Resp: 16 Temp: 36.3 ??C (97.3 ??F) TempSrc: Temporal SpO2: 98% Weight: 96.3 kg (212 lb 6.4 oz) Height: 1.676 m (66 ) Body mass index is 34.28 kg/m??. Body surface area is 2.05 meters squared. PHYSICAL EXAM: Blood pressure 107/74, pulse 67, temperature 36.3 ??C (97.3 ??F), temperature source Temporal, resp. rate 16, height 1.676 m (66 ), weight 96.3 kg (212 lb 6.4 oz), last menstrual period 02/26/2025, SpO2 98%. Body mass index is 34.28 kg/m??. Plan is deferred until next visit APPEARANCE: Alert and in no acute distress ABDOMEN: Bowel sounds normoactive, no bruits and soft, non-tender, without organomegaly or palpablemasses No results found for this or any previous visit (from the past 4464 hours). ASSESSMENT/PLAN: Jaelyn was seen today for follow-up. Diagnoses and all orders for this visit: Gastroenteritis (Primary) - Gastrointestinal pathogens molecular study; Future - CBC and differential; Future - Comprehensive metabolic panel; Future Other orders - ondansetron ODT (ZOFRAN-ODT) 4 mg disintegrating tablet; Dissolve 1 tablet (4 mg total) on top ofthe tongue every 8 (eight) hours if needed for nausea or vomiting. Plan Patient gastroenteritis, encouraged to maintain adequate hydration. Will check GI PCR panel, Zofranas needed for nausea and vomiting. Will recheck electrolytes as well as follow-up on leukocytosis that was noted previously on labs in the ER. Follow up if symptoms worsen or fail to improve, for Next scheduled follow-up. Orders Placed This Encounter Procedures Gastrointestinal pathogens molecular study CBC and differential Comprehensive metabolic panel Recent Results (from the past 4 weeks) POC glucose manually resulted Collection Time: 02/24/25 10:36 AM Result Value Ref Range Glucose POC 117 mg/dL Hemoglobin A1c Collection Time: 02/27/25 10:51 AM Result Value Ref Range Hemoglobin A1C 5.4 <6.5 % Mean Bld Glu Estim. 108 mg/dL Insulin, total Collection Time: 02/27/25 10:51 AM Result Value Ref Range Insulin 9.6 3.0 - 25.0 mcIU/mL Comprehensive metabolic panel Collection Time: 02/27/25 10:51 AM Result Value Ref Range Sodium 140 133 - 145 mmol/L Potassium 4.2 3.5 - 5.5 mmol/L Chloride 104 96 - 110 mmol/L CO2 26 21 - 32 mmol/L Anion Gap 10 3 - 11 Glucose 79 70 - 100 mg/dL BUN 10 5 - 25 mg/dL Creatinine 0.98 0.50 - 1.10 mg/dL eGFR 85 >=60 mL/min/1.73m2 BUN/Creatinine Ratio 10.2 Calcium 9.1 8.5 - 10.5 mg/dL AST (SGOT) 29 10 - 42 unit/L ALT (SGPT) 32 10 - 60 unit/L Alkaline Phosphatase 88 42 - 121 unit/L Total Protein 7.3 6.0 - 8.0 g/dL Albumin 4.3 3.2 - 5.0 g/dL Total Bilirubin 0.4 0.0 - 1.4 mg/dL Thyroid stimulating hormone with reflex to free t4 and free t3 Collection Time: 02/27/25 10:51 AM Result Value Ref Range TSH 2.20 0.40 - 4.00 mcIU/mL ACTH Collection Time: 02/27/25 10:51 AM Result Value Ref Range Adrenocorticotropic Hormone (ACTH) 17 <=46 pg/mL Cortisol Collection Time: 02/27/25 10:51 AM Result Value Ref Range Cortisol 6.4 mcg/dL Beta hydroxybutyrate Collection Time: 02/27/25 10:51 AM Result Value Ref Range Beta-Hydroxybutyrate 1.3 0.2 - 2.8 mg/dL C-peptide Collection Time: 02/27/25 10:51 AM Result Value Ref Range C-Peptide 1.70 0.80 - 3.90 ng/mL Proinsulin Collection Time: 02/27/25 10:51 AM Result Value Ref Range Proinsulin, Intact <2.0 <=7.2 pmol/L Urinalysis with reflex microscopic Collection Time: 03/02/25 2:30 AM Result Value Ref Range Specific [place] Urine 1.024 1.003 - 1.030 pH, Urine 7.5 5.0 - 8.0 pH Leukocytes, Urine Negative Negative Nitrite, Urine Negative Negative Protein, Urine Negative <=Trace mg/dL Glucose, Urine Negative Negative mg/dL Ketones, Urine Negative Negative mg/dL Urobilinogen, Urine 0.2 0.2 - 1.0 mg/dL Bilirubin, Urine Negative Negative Blood, Urine Negative Negative Marcelo urine culture tube Collection Time: 03/02/25 2:30 AM Result Value Ref Range Extra Tube Hold for add-ons. Comprehensive metabolic panel Collection Time: 03/02/25 3:31 AM Result Value Ref Range Sodium 137 133 - 145 mmol/L Potassium 4.4 3.5 - 5.5 mmol/L Chloride 101 96 - 110 mmol/L CO2 27 21 - 32 mmol/L Anion Gap 9 3 - 11 Glucose 96 70 - 100 mg/dL BUN 13 5 - 25 mg/dL Creatinine 0.95 0.50 - 1.10 mg/dL eGFR 88 >=60 mL/min/1.73m2 BUN/Creatinine Ratio 13.7 Calcium 9.0 8.5 - 10.5 mg/dL AST (SGOT) 32 10 - 42 unit/L ALT (SGPT) 31 10 - 60 unit/L Alkaline Phosphatase 95 42 - 121 unit/L Total Protein 7.0 6.0 - 8.0 g/dL Albumin 4.5 3.2 - 5.0 g/dL Total Bilirubin 0.7 0.0 - 1.4 mg/dL Lipase Collection Time: 03/02/25 3:31 AM Result Value Ref Range Lipase 23 12 - 53 unit/L CBC auto differential Collection Time: 03/02/25 3:31 AM Result Value Ref Range WBC 12.8 (H) 4.8 - 10.8 K/mcL RBC 5.20 (H) 3.80 - 4.80 M/mcL Hemoglobin 13.4 11.5 - 16.0 g/dL Hematocrit 41.1 35.0 - 47.0 % MCV 79.7 79.0 - 98.0 FL MCH 26.0 (L) 27.0 - 32.0 pcg MCHC 32.6 32.0 - 37.0 g/dL RDW 13.3 11.0 - 15.0 % Platelets 291 130 - 400 K/mcL MPV 10.9 7.0 - 11.0 FL NRBC 0.0 <1.0 % NRBC Absolute 0.00 <0.10 K/mcL Neutrophils Relative 91.5 % Lymphocytes Relative 3.5 % Monocytes Relative 4.3 % Eosinophils Relative 0.2 % Basophils Relative 0.1 % Immature Granulocytes Relative 0.4 % Neutrophils Absolute 11.69 (H) 1.50 - 7.00 K/mcL Lymphocytes Absolute 0.45 (L) 1.00 - 5.00 K/mcL Monocytes Absolute 0.55 0.20 - 1.00 K/mcL Eosinophils Absolute 0.02 0.00 - 0.50 K/mcL Basophils Absolute 0.01 0.00 - 0.20 K/mcL Immature Granulocytes Absolute 0.05 (H) 0.00 - 0.03 K/mcL hCG, serum, qualitative Collection Time: 03/02/25 3:31 AM Result Value Ref Range hCG Qual Negative Negative Mick Dumont MD [1] Current Outpatient Medications: blood-glucose meter kit, Use as directed for monitoring of low blood sugars, Disp: 1 each, Rfl: 0 glucose blood test strip, Use as directed for monitoring of low blood sugars. Freestyle, Disp: 100 each, Rfl: 1 lancets lancets, Use as directed for monitoring of low blood sugars. Free style, Disp: 100 each, Rfl: 1 magnesium oxide (MAG-OX) 400 mg magnesium tablet, Take 1 tablet (400 mg total) by mouth 1 (one) time each day., Disp: 90 tablet, Rfl: 3 nicotine (NICODERM CQ) 14 mg/24 hr, PLACE 1 PATCH ON THE SKIN 1 TIME EACH DAY AT THE SAME TIME., Disp: 42 patch, Rfl: 3 ondansetron ODT (ZOFRAN-ODT) 4 mg disintegrating tablet, Dissolve 1 tablet (4 mg total) on top of the tongue every 8 (eight) hours if needed for nausea or vomiting., Disp: 270 tablet, Rfl: 0 SUMAtriptan (IMITREX) 50 mg tablet, Take 1 tablet (50 mg total) by mouth 1 (one) time if needed formigraine. May repeat dose once in 2 hours if no relief. Do not exceed 2 doses in 24 hours., Disp: 90 tablet, Rfl: 1 topiramate (TOPAMAX) 50 mg tablet, Take 1 tablet (50 mg total) by mouth 1 (one) time each day., Disp: 90 each, Rfl: 1 [2] No Known Allergies [3] Patient Active Problem List Diagnosis Chiari malformation type I (CMS/[facility] V24, CMS/[facility] V28) Migraines History of learning disability ADHD (attention deficit hyperactivity disorder), inattentive type Tic disorder Prediabetes Vitamin D deficiency Hypoglycemia [4] Past Medical History: Diagnosis Date Chiari malformation type I (CMS/[facility] V24, CMS/[facility] V28) History of learning disability Hypertension Migraines [5] No past surgical history on file. [6] Family History Problem Relation Name Age of Onset Diabetes Mother Other (Other: hx tia) Mother Schizophrenia Father Other (Other: Epilepsy) Father's side Other (Other: Spina Bifida) Father's side cousin Breast cancer Neg Hx Ovarian cancer Neg Hx documented in this encounter Plan of Treatment Upcoming Encounters Date Type Department Care Team (Late st Contact Info) Description 04/08/2025 3:40 PM EST [place] [facility] [place] [address] [place], [place] [phone] Cristian Grey MD [address], [place] 05/09/2025 12:30 PM EST Office Visit [place] [facility] [place] [address] [place] [address] Ladan Jha PA [address] [place], [place] Scheduled Orders Name Type Priority Associated Diagnoses Order Schedule Gastrointestinal pathogens molecular study Microbiology Routine Gastroenteritis 1 Occurrences starting 03/07/2025 until 03/07/2026 documented as of this encounter Results * (ABNORMAL) Comprehensive metabolic panel (03/07/2025 11:32 AM EST) Sodium 140 133 - 145 mmol/L 03/07/2025 4:17 PM [facility] Potassium 4.6 3.5 - 5.5 mmol/L 03/07/2025 4:17 PM [facility] Chloride 101 96 - 110 mmol/L 03/07/2025 4:17 PM [facility] CO2 26 21 - 32 mmol/L 03/07/2025 4:17 PM [facility] Anion Gap 13(H) 3 - 11 03/07/2025 4:17 PM [facility] Glucose 91 70 - 100 mg/dL 03/07/2025 4:17 PM [facility] BUN 11 5 - 25 mg/dL 03/07/2025 4:17 PM [facility] Creatinine 0.89 0.50 - 1.10 mg/dL 03/07/2025 4:17 PM [facility] eGFR 95 >=60 mL/min/1. 73m2 03/07/2025 4:17 PM [facility] Comment:Calculation based on the Chronic Kidney Disease Epidemiology Collaboration (CKD-EPI) equation refit without adjustment for race. BUN/Creatinine Ratio 12.4 03/07/2025 4:17 PM [facility] Calcium 9.4 8.5 - 10.5 mg/dL 03/07/2025 4:17 PM [facility] AST (SGOT) 25 10 - 42 unit/L 03/07/2025 4:17 PM [facility] ALT (SGPT) 27 10 - 60 unit/L 03/07/2025 4:17 PM [facility] Alkaline Phosphatase 96 42 - 121 unit/L 03/07/2025 4:17 PM [facility] Total Protein 7.5 6.0 - 8.0 g/dL 03/07/2025 4:17 PM [facility] Albumin 4.4 3.2 - 5.0 g/dL 03/07/2025 4:17 PM [facility] Total Bilirubin 0.3 0.0 - 1.4 mg/dL 03/07/2025 4:17 PM [facility] Blood Venous blood specimen / Unknown Venipuncture / Unknown 03/07/2025 11:32 AM EST 03/07/2025 11:32 AM EST us Mick Dumont MD LAB BLOOD ORDERABLES F inal Result [facility] [address] [place] [address], documented in this encounter Visit Diagnoses Diagnosis Gastroenteritis- Primary Other and unspecified noninfectious gastroenteritis and colitis documented in this encounter Discontinued Medications Medication Sig Discontinue Reason Start Date End Da te norethindrone (CUONG ECHOLS HEATHER,ALBERTINA BACH) 0.35 mg tablet TAKE 1 TABLET BY MOUTH 1 TIME EACH DAY. Patient Discharge 10/14/2024 03/07/2025 ondansetron ODT (ZOFRAN-ODT) 4 mg disintegrating tablet Let 1 tablet dissolve under the tongue three times daily as needed for nausea or vomiting. Reorder 03/02/2025 03/07/2025 documented as of this encounter Additional Health Concerns Assessment Noted Time PHQ-9 Depression Total Score: 1 03/07/20 25 9:38 AM EST documented as of this encounter Care Teams Bushing Press Operator Relationship Specialty Start Date End Date Mick Dumont MD [address] [place] [address] PCP - General Internal Medicine 03/18/24 documented as of this encounter
--- OUTSIDE RECORDS SUMMARY | 2025-03-07 11:30 | XMS_ITS | Encounter Summary ---
Author Organization [facility] Address [address] [place] [address] Care Team Providers Care Chief Dispatcher Service Name Role Phone Mick Dumont MD Primary Care Provider Encounter Details Date Type Department Care Team (Late st Contact Info) Description 03/07/2025 11:30 AM EST Lab Draw Station - [address] [phone] Gastroenteritis Social History Tobacco Use Types Packs/Day Years Used Date Smoking Tobacco: Never Smokeless Tobacco: Never Comments:Vapes nicotine Alcohol Use [...] care for your loved ones. For example, children's zoo caretaker or elderly care for an older adult? 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 Not on file Not on file documented as of this encounter Plan of Treatment Upcoming Encounters Date Type Department Care Team (Late st Contact Info) Description 04/08/2025 3:40 PM EST Office Visit Endocrinology - [place] [address] [place] [address] Cristian Grey MD [address], [place] 05/09/2025 12:30 PM EST Office Visit Adult [facility] [address], [place] [phone] Ladan Jha PA [address], [place] documented as of this encounter Procedures Procedure Name Priority Date/Time Associated Diagnosis Comments CBC WITH AUTO DIFFERENTIAL Routine 03/07/2025 11:32 AM EST Gastroenteritis CBC AND DIFFERENTIAL Routine 03/07/2025 11:32 AM EST Gastroenteritis COMPREHENSIVE METABOLIC PANEL Routine 03/07/2025 11:32 AM EST Gastroenteritis documented in this encounter Results * (ABNORMAL) CBC auto differential (03/07/2025 11:32 AM EST) WBC 6.9 4.8 - 10.8 K/mcL LAB HEMETOLOGY METHOD 03/07/2025 3:57 PM [facility] RBC 5.10(H) 3.80 - 4.80 M/mcL LAB HEMETOLOGY METHOD 03/07/2025 3:57 PM [facility] Hemoglobin 13.2 11.5 - 16.0 g/dL LAB HEMETOLOGY METHOD 03/07/2025 3:57 PM [facility] Hematocrit 40.7 35.0 - 47.0 % LAB HEMETOLOGY METHOD 03/07/2025 3:57 PM [facility] MCV 80.0 79.0 - 98.0 FL LAB HEMETOLOGY METHOD 03/07/2025 3:57 PM [facility] MCH 25.9(L) 27.0 - 32.0 pcg LAB HEMETOLOGY METHOD 03/07/2025 3:57 PM [facility] MCHC 32.4 32.0 - 37.0 g/dL LAB HEMETOLOGY METHOD 03/07/2025 3:57 PM [facility] RDW 13.3 11.0 - 15.0 % LAB HEMETOLOGY METHOD 03/07/2025 3:57 PM [facility] Platelets 374 130 - 400 K/mcL LAB HEMETOLOGY METHOD 03/07/2025 3:57 PM [facility] MPV 10.7 7.0 - 11.0 FL LAB HEMETOLOGY METHOD 03/07/2025 3:57 PM [facility] NRBC 0.0 <1.0 % LAB HEMETOLOGY METHOD 03/07/2025 3:57 PM [facility] NRBC Absolute 0.00 <0.10 K/mcL LAB HEMETOLOGY METHOD 03/07/2025 3:57 PM [facility] Neutrophils Relative 62.1 % LAB HEMETOLOGY METHOD 03/07/2025 3:57 PM [facility] Lymphocytes Relative 29.8 % LAB HEMETOLOGY METHOD 03/07/2025 3:57 PM [facility] Monocytes Relative 6.2 % LAB HEMETOLOGY METHOD 03/07/2025 3:57 PM [facility] Eosinophils Relative 1.2 % LAB HEMETOLOGY METHOD 03/07/2025 3:57 PM [facility] Basophils Relative 0.4 % LAB HEMETOLOGY METHOD 03/07/2025 3:57 PM [facility] Immature Granulocytes Relative 0.3 % LAB HEMETOLOGY METHOD 03/07/2025 3:57 PM [facility] Neutrophils Absolute 4.30 1.50 - 7.00 K/mcL LAB HEMETOLOGY METHOD 03/07/2025 3:57 PM [facility] Lymphocytes Absolute 2.06 1.00 - 5.00 K/mcL LAB HEMETOLOGY METHOD 03/07/2025 3:57 PM [facility] Monocytes Absolute 0.43 0.20 - 1.00 K/mcL LAB HEMETOLOGY METHOD 03/07/2025 3:57 PM EST [facility] Eosinophils Absolute 0.08 0.00 - 0.50 K/mcL LAB HEMETOLOGY METHOD 03/07/2025 3:57 PM [facility] Basophils Absolute 0.03 0.00 - 0.20 K/mcL LAB HEMETOLOGY METHOD 03/07/2025 3:57 PM [facility] Immature Granulocytes Absolute 0.02 0.00 - 0.03 K/mcL LAB HEMETOLOGY METHOD 03/07/2025 3:57 PM [facility] Blood Venous blood specimen / Unknown Venipuncture / Unknown 03/07/2025 11:32 AM EST 03/07/2025 11:32 AM EST Mick Dumont MD LAB BLOOD ORDERABLES F inal Result [facility] [address] [place] [address], * (ABNORMAL) Comprehensive metabolic panel (03/07/2025 11:32 AM EST) Sodium 140 133 - 145 mmol/L 03/07/2025 4:17 PM [facility] Potassium 4.6 3.5 - 5.5 mmol/L 03/07/2025 4:17 PM [facility] Chloride 101 96 - 110 mmol/L 03/07/2025 4:17 PM [facility] CO2 26 21 - 32 mmol/L 03/07/2025 4:17 PM [facility] Anion Gap 13(H) 3 - 11 03/07/2025 4:17 PM [facility] Glucose 91 70 - 100 mg/dL 03/07/2025 4:17 PM [facility] BUN 11 5 - 25 mg/dL 03/07/2025 4:17 PM [facility] Creatinine 0.89 0.50 - 1.10 mg/dL 03/07/2025 4:17 PM [facility] eGFR 95 >=60 mL/min/1. 73m2 03/07/2025 4:17 PM [facility] Comment:Calculation based on the Chronic Kidney Disease Epidemiology Collaboration (CKD-EPI) equation refit without adjustment for race. BUN/Creatinine Ratio 12.4 03/07/2025 4:17 PM [facility] Calcium 9.4 8.5 - 10.5 mg/dL 03/07/2025 4:17 PM [facility] AST (SGOT) 25 10 - 42 unit/L 03/07/2025 4:17 PM [facility] ALT (SGPT) 27 10 - 60 unit/L 03/07/2025 4:17 PM [facility] Alkaline Phosphatase 96 42 - 121 unit/L 03/07/2025 4:17 PM [facility] Total Protein 7.5 6.0 - 8.0 g/dL 03/07/2025 4:17 PM [facility] Albumin 4.4 3.2 - 5.0 g/dL 03/07/2025 4:17 PM [facility] Total Bilirubin 0.3 0.0 - 1.4 mg/dL 03/07/2025 4:17 PM [facility] Blood Venous blood specimen / Unknown Venipuncture / Unknown 03/07/2025 11:32 AM EST 03/07/2025 11:32 AM EST us Mick Dumont MD LAB BLOOD ORDERABLES F inal Result [facility] [address] [place] [address], documented in this encounter Visit Diagnoses Diagnosis Gastroenteritis Other and unspecified noninfectious gastroenteritis and colitis documented in this encounter Additional Health Concerns Assessment Noted Time PHQ-9 Depression Total Score: 1 03/07/20 25 9:38 AM EST documented as of this encounter Care Teams Chief Dispatcher Service Relationship Specialty Start Date End Date Mick Dumont MD [address] [place] [address] PCP - General Internal Medicine 03/18/24 documented as of this encounter
--- OUTSIDE RECORDS SUMMARY | 2025-03-10 08:26 | XMS_ITS | Encounter Summary ---
Author Organization [facility] Address [address] [place] [address] Care Team Providers Care Office Rn Name Role Phone Mick Dumont MD Primary Care Provider Encounter Details Date Type Department Care Team (Late st Contact Info) Description 03/05/2025 Results Follow-Up Endocrinology - [place] [address] [place] [phone] Cristian Grey MD [address] [place] [address] Social History Tobacco Use Types Packs/Day Years [...] care for your loved ones. For example, registered nurse maternal child or elderly care for an older adult? 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 Not on file Not on file documented as of this encounter Plan of Treatment Upcoming Encounters Date Type Department Care Team (Late st Contact Info) Description 04/08/2025 3:40 PM EST Office Visit Endocrinology - [place] [address] [place] [phone] Cristian Grey MD [address] [place] [address] 05/09/2025 12:30 PM EST Office Visit Adult Medicine [facility] [address] [place] [address] Ladan Jha PA [address], [place] documented as of this encounter Visit Diagnoses Not on filedocumented in this encounter Additional Health Concerns Assessment Noted Time PHQ-9 Depression Total Score: 0 01/22/20 25 2:02 PM EST documented as of this encounter Care Teams Office Rn Relationship Specialty Start Date End Date Mick Dumont MD [address] [place] [address] PCP - General Internal Medicine 03/18/24 documented as of this encounter
--- OUTSIDE RECORDS SUMMARY | 2025-03-10 08:26 | XMS_ITS | Encounter Summary ---
Author Organization [facility] Address [address] [place] [address] Care Team Providers Care Cashier Courtesy Booth Name Role Phone Mick Dumont MD Primary Care Provider Encounter Details Date Type Department Care Team (Late st Contact Info) Description 03/07/2025 Results Follow-Up Adult Medicine [facility] [address] [place], [place] [phone] Mick Dumont MD [address] [place], [place] Social History Tobacco Use Types Packs/Day Years [...] for your loved ones. For example, child nutrition assistant or elderly care for an older adult? 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 Not on file Not on file documented as of this encounter Plan of Treatment Upcoming Encounters Date Type Department Care Team (Late st Contact Info) Description 04/08/2025 3:40 PM EST Office Visit Endocrinology - [place] [address] [place] [address] Cristian Grey MD [address] [place] [address] 05/09/2025 12:30 PM EST Office Visit Adult Medicine [address] [phone] Ladan Jha PA [address] [place] [address] documented as of this encounter Visit Diagnoses Not on filedocumented in this encounter Additional Health Concerns Assessment Noted Time PHQ-9 Depression Total Score: 1 03/07/20 25 9:38 AM EST documented as of this encounter Care Teams Cashier Courtesy Booth Relationship Specialty Start Date End Date Mick Dumont MD [address] [place] [address] PCP - General Internal Medicine 03/18/24 documented as of this encounter
--- OUTSIDE RECORDS SUMMARY | 2025-03-10 08:26 | XMS_ITS | Clinical Summary ---
Author Organization [facility] [address] [facility] lding Address [address] [place] [address] Phone Care Team Providers Care Director [employer] Name Role Phone Mick Dumont MD Primary Care Provider Allergies No known active allergies Medications blood-glucose meter kit Use as directed for monitoring of low blood sugars 1 each 07/19/19 25 026 Active nicotine (NICODERM CQ) 14 mg/[address] 1 PATCH ON THE SKIN 1 TIME EACH DAY AT THE SAME TIME. 42 patch 3 08/27/19 25 Active glucose blood test strip Use [...] doses in 24 hours. 90 tablet 1 11/04/20 25 Active topiramate (TOPAMAX) 50 mg tablet Take 1 tablet (50 mg total) by mouth 1 (one) time each day. 90 each 1 01/22/20 25 Active ondansetron ODT (ZOFRAN-ODT) 4 mg disintegrating tablet Dissolve 1 tablet (4 mg total) on top of the tongue every 8 (eight) hours if needed for nausea or vomiting. 270 tablet 03/07/20 25 Active varenicline tartrate (CHANTIX JV) 0.5 mg (11)- 1 mg (42) tablet Take 0.5 mg by mouth 1 (one) time each day for 3 days (days 1-3), THEN 0.5 mg 2 (two) times a day for 4 days (days 4-7), THEN 1 mg 2 (two) times a day for 12 weeks. 53 tablet 1 08/15/19 25 025 Discontin ued(Thera py completed ) norethindrone (KINZA,CUONG,HEAT HER,MICRONOR) 0.35 mg tablet TAKE 1 TABLET BY MOUTH 1 TIME EACH DAY. 84 tablet 1 10/15/19 25 025 Discontin ued(Patie nt Discharge ) ondansetron ODT (ZOFRAN-ODT) 4 mg disintegrating tablet Let 1 tablet dissolve under the tongue three times daily as needed for nausea or vomiting. 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 Tic disorder 07/12/2024 Chiari malformation type I 06/10/2021 Overview (12/19/2023): Diagnosed in childhood Migraines 06/10/2021 Overview (12/19/2023): Followed by Neuro Topamax as needed History of learning disability Overview (01/25/2024): DX:History of learning disability Encounters Date Type Department Care Team Description 03/07/2025 11:30 AM EST Lab Draw Station - [address] Gastroenteritis 03/07/2025 9:45 AM EST Office Visit Adult Medicine [address] [phone] Mick Dumont MD Gastroenteritis (Primary Dx) 03/07/2025 Results Follow-Up Adult Medicine [address] [phone] Mick Dumont MD 03/05/2025 Results Follow-Up [address] [phone] Cristian Grey MD 03/02/2025 3:03 AM EST - 03/02/2025 7:15 AM EST Emergency [facility] Emergency [address] [place] [address] Janice Shelby MD Viral gastroenteritis (Primary Dx) Discharge Disposition: Home or Self Care 02/27/2025 10:50 AM EST Lab Draw Station - [address] [place] [address] [address] [place] [address] Hypoglycemia 02/25/2025 Telephone Adult Medicine [address] [phone] Mick Dumont MD 02/24/2025 10:40 AM EST Consult Endocrinology [address] [phone] Cristian Grey MD Hypoglycemia 02/24/2025 Telephone Adult Medicine [address] [phone] Mick Dumont MD 02/11/2025 Telephone Adult Medicine [address] [phone] Hattie Gonzalez [place] 02/10/2025 Telephone Adult Medicine East [address] [phone] Mick Dumont MD 01/31/2025 Telephone Adult Medicine [address] [phone] Mick Dumont MD 01/21/2025 2:30 PM EST Office Visit Adult Medicine [address] [phone] Mick Dumont MD Hypoglycemia (Primary Dx); Viral warts, unspecified type; Other migraine without status migrainosus, not intractable from Last 3 Months Immunizations Immunization Administration Dates Next Due DTaP (Infanrix) 6wks to less than 7yo ,11/02/2005,01/26/2005,11/23,2004 [id number] (Pentacel) 2mo to less than 5yo 12/15/2005,01/26/2005,2004,07/08 [...] of learning disability Chiari malformation type I ([facility] V24, [facility] V28) Migraines Hypertension Family History Medical History Relation Name Comments [...] for your loved ones. For example, children's program coordinator or elderly care for an older adult? 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[employer], [employer] Not on file Not [...] Mass Index 34.28 03/07/2025 9:36 AM EST Plan of Treatment Upcoming Encounters Date Type Department Care Team (Late st Contact Info) Description 04/08/2025 3:40 PM EST Office Visit Endocrinology [address] [phone] Cristian Grey MD [address] [place] [address] 05/09/2025 12:30 PM EST Office Visit Adult Medicine East [address] [phone] Ladan Jha PA [address] [place], [place] Health Maintenance Due Date Last Done Comments COVID-19 Vaccine (2024- season) 2024 12/21/2023, 05/26/2023, 10/31/2021, Additional history exists Hepatitis B Vaccines (3 of 3 - 3-dose series) 01/13/2025 11/18/2024, 2004 Social Influencers of Health Screening 05/24/2025 05/24/2024 Annual Well Child Visit (3-21 years old) 07/24/2025 07/24/2024, 01/25/2024 Gonorrhea/Chlamydia Screening 07/24/2025 07/24/2024, 10/03/2023 Cholesterol Screening (Lipid Panel) 01/24/2029 01/25/2024 DTaP,Tdap,and Td Vaccines (7 - Td or Tdap) 01/24/2034 01/25/2024, 06/27/2008, 12/15/2005, Additional history exists RSV Immunization Adult Patients (1 - 1-dose 75+ series) 2079 HIB Vaccines Completed 12/15/2005, 11/2004, 2004, Additional history exists IPV Vaccines Completed 05/07/2008, 11/19, 01/26/2005, Additional history exists Varicella Vaccines Completed 05/07/2008, 05/05/2005 MMR Vaccines Completed 06/27/2008, 05/05/2005 Hepatitis A Vaccines Completed 02/09/2009, 06/28/19 Pneumococcal Vaccine: Pediatrics (0 to 5 Years) and At-Risk Patients (6 to 49 Years) Completed 06/10/2015, 12/13/2005, 01/26/2005, Additional history exists HPV Vaccines Completed 12/11/2015, 07/19, 06/13/2015 Meningococcal ACWY Vaccine Completed 05/06/2020, Meningococcal B Vaccine Completed 12/03/2021, 07/14 Hepatitis C Screening Completed 08/11/2022 HIV Screening Completed 07/24/2024, 08/11/2022 Influenza Vaccine Completed 11/18/2024, , 05/26/2023, Additional history exists Depression Screening Completed 03/07/2025 RSV Immunization Patients Under 20 months Aged Out No longer eligible based on patient's age to complete this topic Procedures Procedure Name Priority Date/Time Associated Diagnosis Comments CBC WITH AUTO DIFFERENTIAL Routine 03/07/2025 11:32 AM EST Gastroenteritis CBC AND DIFFERENTIAL Routine 03/07/2025 11:32 AM EST Gastroenteritis COMPREHENSIVE METABOLIC PANEL Routine 03/07/2025 11:32 AM EST Gastroenteritis HCG, SERUM, QUALITATIVE STAT Add-on 03/02/2025 3:31 AM EST CBC WITH AUTO DIFFERENTIAL STAT 03/02/2025 3:31 AM EST LIPASE STAT 03/02/2025 3:31 AM EST COMPREHENSIVE METABOLIC PANEL STAT 03/02/2025 3:31 AM EST CBC AND DIFFERENTIAL STAT 03/02/2025 3:31 AM EST MARCELO URINE CULTURE TUBE Routine 03/02/2025 2:30 AM EST EXTRA TUBES Routine 03/02/2025 2:30 AM EST URINALYSIS WITH REFLEX MICROSCOPIC STAT 03/02/2025 2:30 AM EST URINALYSIS WITH REFLEX MICROSCOPIC STAT 03/02/2025 2:30 AM EST SULFONYLUREA Routine 02/27/2025 10:51 AM EST Hypoglycemia PROINSULIN Routine 02/27/2025 10:51 AM EST Hypoglycemia C-PEPTIDE Routine 02/27/2025 10:51 AM EST Hypoglycemia BETA HYDROXYBUTYRATE Routine 02/27/2025 10:51 AM EST Hypoglycemia CORTISOL Routine 02/27/2025 10:51 AM EST Hypoglycemia ACTH Routine 02/27/2025 10:51 AM EST Hypoglycemia THYROID STIMULATING HORMONE WITH REFLEX TO FREE T4 AND FREE T3 Routine 02/27/2025 10:51 AM EST Hypoglycemia COMPREHENSIVE METABOLIC PANEL Routine 02/27/2025 10:51 AM EST Hypoglycemia INSULIN, TOTAL Routine 02/27/2025 10:51 AM EST Hypoglycemia HEMOGLOBIN A1C Routine 02/27/2025 10:51 AM EST Hypoglycemia POC GLUCOSE Routine 02/24/2025 10:36 AM EST Hypoglycemia HIV 1, 2 ANTIBODY, P24 ANTIGEN WITH REFLEX TO DIFFERENTIATION Routine 07/24/2024 3:06 PM EDT Screen for STD (sexually transmitted disease) CHLAMYDIA TRACHOMATIS AND NEISSERIA GONORRHOEAE PCR Routine 07/24/2024 2:51 PM EDT Screen for STD (sexually transmitted disease) LIPID PANEL WITH REFLEX TO DIRECT LDL Routine 01/25/2024 3:37 PM EST Routine general medical examination at a health care facility HM HEPATITIS C SCREENING Routine 08/11/2022 from Last 3 Months or Most Recently Relevant to Health Maintenance Results * (ABNORMAL) CBC auto differential (03/07/2025 11:32 AM EST) Only the most recent of2 resultswithin the time period is included. WBC 6.9 4.8 - 10.8 K/mcL LAB HEMETOLOGY METHOD 03/07/2025 3:57 PM [facility] RBC 5.10(H) 3.80 - 4.80 M/mcL LAB HEMETOLOGY METHOD 03/07/2025 3:57 PM [facility] Hemoglobin 13.2 11.5 - 16.0 g/dL LAB HEMETOLOGY METHOD 03/07/2025 3:57 PM [facility] Hematocrit 40.7 35.0 - 47.0 % LAB HEMETOLOGY METHOD 03/07/2025 3:57 PM [facility] MCV 80.0 79.0 - 98.0 FL LAB HEMETOLOGY METHOD 03/07/2025 3:57 PM [facility] MCH 25.9(L) 27.0 - 32.0 pcg LAB HEMETOLOGY METHOD 03/07/2025 3:57 PM [facility] MCHC 32.4 32.0 - 37.0 g/dL LAB HEMETOLOGY METHOD 03/07/2025 3:57 PM [facility] RDW 13.3 11.0 - 15.0 % LAB HEMETOLOGY METHOD 03/07/2025 3:57 PM [facility] Platelets 374 130 - 400 K/mcL LAB HEMETOLOGY METHOD 03/07/2025 3:57 PM [facility] MPV 10.7 7.0 - 11.0 FL LAB HEMETOLOGY METHOD 03/07/2025 3:57 PM [facility] NRBC 0.0 <1.0 % LAB HEMETOLOGY METHOD 03/07/2025 3:57 PM [facility] NRBC Absolute 0.00 <0.10 K/mcL LAB HEMETOLOGY METHOD 03/07/2025 3:57 PM [facility] Neutrophils Relative 62.1 % LAB HEMETOLOGY METHOD 03/07/2025 3:57 PM [facility] Lymphocytes Relative 29.8 % LAB HEMETOLOGY METHOD 03/07/2025 3:57 PM [facility] Monocytes Relative 6.2 % LAB HEMETOLOGY METHOD 03/07/2025 3:57 PM [facility] Eosinophils Relative 1.2 % LAB HEMETOLOGY METHOD 03/07/2025 3:57 PM [facility] Basophils Relative 0.4 % LAB HEMETOLOGY METHOD 03/07/2025 3:57 PM [facility] Immature Granulocytes Relative 0.3 % LAB HEMETOLOGY METHOD 03/07/2025 3:57 PM [facility] Neutrophils Absolute 4.30 1.50 - 7.00 K/mcL LAB HEMETOLOGY METHOD 03/07/2025 3:57 PM [facility] Lymphocytes Absolute 2.06 1.00 - 5.00 K/mcL LAB HEMETOLOGY METHOD 03/07/2025 3:57 PM [facility] Monocytes Absolute 0.43 0.20 - 1.00 K/mcL LAB HEMETOLOGY METHOD 03/07/2025 3:57 PM [facility] Eosinophils Absolute 0.08 0.00 - 0.50 K/mcL LAB HEMETOLOGY METHOD 03/07/2025 3:57 PM EST [facility] Basophils Absolute 0.03 0.00 - 0.20 K/mcL LAB HEMETOLOGY METHOD 03/07/2025 3:57 PM EST [facility] Immature Granulocytes Absolute 0.02 0.00 - 0.03 K/[facility] LAB HEMETOLOGY METHOD 03/07/2025 3:57 PM EST [facility] Blood Venous blood specimen / Unknown Venipuncture / Unknown 03/07/2025 11:32 AM EST 03/07/2025 11:32 AM EST us Mick Dumont MD LAB BLOOD ORDERABLES F inal Result [facility] [address] [place] [address], [place] [phone] * (ABNORMAL) Comprehensive metabolic panel (03/07/2025 11:32 AM EST) Only the most recent of3 resultswithin the time period is included. Sodium 140 133 - 145 mmol/L 03/07/2025 4:17 PM [facility] Potassium 4.6 3.5 - 5.5 mmol/L 03/07/2025 4:17 PM [facility] Chloride 101 96 - 110 mmol/L 03/07/2025 4:17 PM [facility] CO2 26 21 - 32 mmol/L 03/07/2025 4:17 PM [facility] Anion Gap 13(H) 3 - 11 03/07/2025 4:17 PM [facility] Glucose 91 70 - 100 mg/dL 03/07/2025 4:17 PM [facility] BUN 11 5 - 25 mg/dL 03/07/2025 4:17 PM [facility] Creatinine 0.89 0.50 - 1.10 mg/dL 03/07/2025 4:17 PM [facility] eGFR 95 >=60 mL/min/1. 73m2 03/07/2025 4:17 PM [facility] Comment:Calculation based on the Chronic Kidney Disease Epidemiology Collaboration (CKD-EPI) equation refit without adjustment for race. BUN/Creatinine Ratio 12.4 03/07/2025 4:17 PM [facility] Calcium 9.4 8.5 - 10.5 mg/dL 03/07/2025 4:17 PM [facility] AST (SGOT) 25 10 - 42 unit/L 03/07/2025 4:17 PM [facility] ALT (SGPT) 27 10 - 60 unit/L 03/07/2025 4:17 PM [facility] Alkaline Phosphatase 96 42 - 121 unit/L 03/07/2025 4:17 PM [facility] Total Protein 7.5 6.0 - 8.0 g/dL 03/07/2025 4:17 PM [facility] Albumin 4.4 3.2 - 5.0 g/dL 03/07/2025 4:17 PM [facility] Total Bilirubin 0.3 0.0 - 1.4 mg/dL 03/07/2025 4:17 PM [facility] Blood Venous blood specimen / Unknown Venipuncture / Unknown 03/07/2025 11:32 AM EST 03/07/2025 11:32 AM EST us Mick Dumont MD LAB BLOOD ORDERABLES F inal Result [facility] [address] [place] [address], [place] [phone] * hCG, serum, qualitative (03/02/2025 3:31 AM EST) Pathologist [facility] hCG Qual Negative Negative 03/02/2025 6:27 AM EST [facility] Blood Venous blood specimen / Unknown Venipuncture / Unknown 03/02/2025 3:31 AM EST 03/02/2025 4:00 AM EST Janice Shelby MD LAB BLOOD ORDERABLES Final Res ult Performing Organization Address City/[facility]/ZIP Co de Phone Number [facility] [address] [place] [address], [place] [phone] * Lipase (03/02/2025 3:31 AM EST) [facility] Lipase 23 12 - 53 unit/L 03/02/2025 4:26 AM EST [facility] Blood Venous blood specimen / Unknown Venipuncture / Unknown 03/02/2025 3:31 AM EST 03/02/2025 4:00 AM EST Janice Shelby MD LAB BLOOD ORDERABLES Final Res ult Performing Organization Address [facility] de Phone Number [facility] [address] [place] [address], [place] [phone] * Urinalysis with reflex microscopic (03/02/2025 2:30 AM EST) [facility] Specific Duff Urine 1.024 1.003 - 1.030 LAB URINALYSIS - AUTOMATED METHOD 03/02/2025 3:20 AM [facility] pH, Urine 7.5 5.0 - 8.0 pH LAB URINALYSIS - AUTOMATED METHOD 03/02/2025 3:20 AM [facility] Leukocytes, Urine Negative Negative LAB URINALYSIS - AUTOMATED METHOD 03/02/2025 3:20 AM [facility] Nitrite, Urine Negative Negative LAB URINALYSIS - AUTOMATED METHOD 03/02/2025 3:20 AM [facility] Protein, Urine Negative <=Trace mg/dL LAB URINALYSIS - AUTOMATED METHOD 03/02/2025 3:20 AM [facility] Glucose, Urine Negative Negative mg/dL LAB URINALYSIS - AUTOMATED METHOD 03/02/2025 3:20 AM [facility] Ketones, Urine Negative Negative mg/dL LAB URINALYSIS - AUTOMATED METHOD 03/02/2025 3:20 AM [facility] Urobilinogen, Urine 0.2 0.2 - 1.0 mg/dL LAB URINALYSIS - AUTOMATED METHOD 03/02/2025 3:20 AM [facility] Bilirubin, Urine Negative Negative LAB URINALYSIS - AUTOMATED METHOD 03/02/2025 3:20 AM [facility] Blood, Urine Negative Negative LAB URINALYSIS - AUTOMATED METHOD 03/02/2025 3:20 AM [facility] Urine Urine specimen obtained by clean catch procedure / Unknown Non-blood Collection / Unknown 03/02/2025 2:30 AM EST 03/02/2025 3:09 AM EST us Janice Shelby MD LAB URINE ORDERABLES Final Res ult Performing Organization Address City/[facility]/ZIP Co de Phone Number [facility] [address] [place] [address], [place] [phone] * Marcelo urine culture tube (03/02/2025 2:30 AM EST) Extra Tube Hold for add-ons. 03/02/2025 5:01 AM EST [facility] Comment:Auto resulted. Urine Urine specimen obtained by clean catch procedure / Unknown Non-blood Collection / Unknown 03/02/2025 2:30 AM EST 03/02/2025 3:09 AM EST us Janice Shelby MD LAB URINE ORDERABLES Final Res ult [facility] [address] [place] [address], * Sulfonylurea (02/27/2025 10:51 AM EST) Acetohexamide Negative 20 - 60 ug/mL 03/07/2025 9:05 PM EST [facility] Chlorpropamide Negative 75 - 250 ug/mL 03/07/2025 9:05 PM EST [facility] Tolazamide Negative UP TO 80 ug/mL 03/07/2025 9:05 PM EST [facility] Tolbutamide Negative 40 - 100 ug/mL 03/07/2025 9:05 PM EST [facility] Glimepiride Negative 80 - 250 ng/mL 03/07/2025 9:05 PM EST [facility] Glipizide Negative 200 - 1000 ng/mL 03/07/2025 9:05 PM EST [facility] Glyburide Negative UP TO 1500 ng/mL 03/07/2025 9:05 PM EST [facility] [place] [address] ng/mL 03/07/2025 9:05 PM EST [facility] Repaglinide Negative UP TO 200 ng/mL 03/07/2025 9:05 PM EST [facility] Comment: This test was developed and its performance characteristics determined by [facility]. It has not been cleared or approved by the Food and Drug Administration. Blood Venous blood specimen / Unknown Venipuncture / Unknown 02/27/2025 10:51 AM EST 02/27/2025 11:16 AM EST Narrative [facility] - 03/07/2025 9:05 PM EST Performed at: 01 - [facility] [address] [place] [id number] Director Manufacturing Engineering: Precious Chacon [facility], Phone: [phone] us Cristian Grey MD LAB BLOOD ORDERABLES Final Result [facility] * Thyroid stimulating hormone with reflex to free t4 and free t3 (02/27/2025 10:51 AM EST) TSH 2.20 0.40 - 4.00 mcIU/mL 02/27/2025 2:58 PM EST [facility] Blood Venous blood specimen / Unknown Venipuncture / Unknown 02/27/2025 10:51 AM EST 02/27/2025 11:17 AM EST us Cristian Grey MD LAB BLOOD ORDERABLES Final Result Performing Organization Address City/[facility]/ZIP Co de Phone Number [facility] [address] [place] [address], [place] [phone] * Beta hydroxybutyrate (02/27/2025 10:51 AM EST) Beta-Hydroxybu tyrate 1.3 0.2 - 2.8 mg/dL 02/27/2025 2:59 PM EST [facility] Blood Venous blood specimen / Unknown Venipuncture / Unknown 02/27/2025 10:51 AM EST 02/27/2025 11:17 AM EST us Cristian Grey MD LAB BLOOD ORDERABLES Final Result Performing Organization Address City/[facility] Co de Phone Number [facility] [address] [place] [address], [place] [phone] * Insulin, total (02/27/2025 10:51 AM EST) Insulin 9.6 3.0 - 25.0 mcIU/mL 02/27/2025 2:58 PM EST [facility] Blood Venous blood specimen / Unknown Venipuncture / Unknown 02/27/2025 10:51 AM EST 02/27/2025 11:17 AM EST Narrative [facility] - 02/27/2025 2:58 PM EST Insulin reference range based on fasting status. Insulin values vary in non-fasting individuals. us Cristian Grey MD LAB BLOOD ORDERABLES Final Result [facility] [address] [place] [address], [place] [phone] * Proinsulin (02/27/2025 10:51 AM EST) Proinsulin, Intact <2.0 <=7.2 pmol/L 03/04/2025 7:37 PM EST [facility] Comment: Performed By: [facility] [address] [place] [id number] Electronic Test Technician: Donnell Nichols MD, PhD CLIA Number: [id number] Blood Venous blood specimen / Unknown Venipuncture / Unknown 02/27/2025 10:51 AM EST 02/27/2025 11:17 AM EST Cristian Grey MD LAB BLOOD ORDERABLES Final Result Performing Organization Address City/[facility]/ZIP Co de Phone Number [facility] [address] [place] [address] * C-peptide (02/27/2025 10:51 AM EST) [facility] C-Peptide 1.70 0.80 - 3.90 ng/mL 02/27/2025 4:55 PM EST [facility] Blood Venous blood specimen / Unknown Venipuncture / Unknown 02/27/2025 10:51 AM EST 02/27/2025 11:17 AM EST Cristian Grey MD LAB BLOOD ORDERABLES Final Result Performing Organization Address City/[facility]/ZIP Co de Phone Number [facility] [address] [place] [address], [place] [phone] * ACTH (02/27/2025 10:51 AM EST) Adrenocorticotropic Hormone (ACTH) 17 <=46 pg/mL 03/03/2025 8:00 PM EST [facility] Comment: Test performed at [facility], [address], [place] [address] Sravanthi Pacheco MD, PhD - Marketing Strategy Analyst Blood Venous blood specimen / Unknown Venipuncture / Unknown 02/27/2025 10:51 AM EST 02/27/2025 11:16 AM EST Cristian Grey MD LAB BLOOD ORDERABLES Final Result [facility] [address] [place] [address] * Hemoglobin A1c (02/27/2025 10:51 AM EST) Hemoglobin A1C 5.4 <6.5 % LAB CHEMISTRY METHOD 02/28/2025 12:52 PM EST [facility] Mean Bld Glu Estim. 108 mg/dL LAB CHEMISTRY METHOD 02/28/2025 12:52 PM EST [facility] Blood Venous blood specimen / Unknown Venipuncture / Unknown 02/27/2025 10:51 AM EST 02/27/2025 11:17 AM EST Cristian Grey MD LAB BLOOD ORDERABLES Final Result Performing Organization Address City/[facility]/ZIP Co de Phone Number [facility] [address] [place] [address], * Cortisol (02/27/2025 10:51 AM EST) Cortisol 6.4 mcg/dL 02/27/2025 5:51 PM EST [facility] Blood Venous blood specimen / Unknown Venipuncture / Unknown 02/27/2025 10:51 AM EST 02/27/2025 11:17 AM EST Narrative [facility] - 02/27/2025 5:51 PM EST CORTISOL REFERENCE RANGE 8 AM SPEC: 5.0-23.0 mcg/dL 4 PM SPEC: 3.0-16.0 mcg/dL 8 PM SPEC: <5.0 mcg/dL us Cristian Grey MD LAB BLOOD ORDERABLES Final Result Performing Organization Address [facility]/ZIP Co de Phone Number [facility] [address] [place] [address], * POC glucose manually resulted (02/24/2025 10:36 AM EST) [facility] Glucose POC 117 mg/dL Blood Capillary blood specimen / Unknown 02/24/2025 10:36 AM EST Cristian Grey MD POINT OF CARE TEST EN TER/EDIT ORDERABLES Final Result * HIV 1,2 antibody, p24 antigen with reflex to differentiation (07/24/2024 3:06 PM EDT) [facility] HIV Combo AB/AG Negative Negative LAB CHEMISTRY METHOD 07/24/2024 8:20 PM EDT [facility] Blood Venous blood specimen / Unknown Venipuncture / Unknown 07/24/2024 3:06 PM EDT 07/24/2024 3:06 PM EDT Narrative [facility] - 07/24/2024 8:20 PM EDT This assay is a 4th generation assay allowing for earlier detection of HIV infection by detecting the presence of the HIV-1 p24 antigen as well as the traditional antibodies to HIV type 1 (including group O) and type 2. Use of a 4th generation assay is the current CDC recommendation for HIV screening. Mary Fitzgerald CNM LAB BLOOD ORDERABLES Final R esult Performing Organization Address City/[facility]/ZIP Co de Phone Number [facility] [address] [place] [address], * Chlamydia trachomatis and Neisseria gonorrhoeae molecular study (07/24/2024 2:51 PM EDT) Pathologist [facility] Neisseria gonorrhoeae PCR Negative Negative LAB MOLECULAR DIAGNOSTICS METHOD 07/25/2024 9:51 AM EDT [facility] Chlamydia trachomatis PCR Negative Negative LAB MOLECULAR DIAGNOSTICS METHOD 07/25/2024 9:51 AM EDT [facility] Swab Vaginal structure / Unknown Non-blood Collection / Unknown 07/24/2024 2:51 PM EDT 07/24/2024 2:51 PM EDT Mary Fitzgerald CNM LAB MICROBIOLOGY - GENERAL O RDERABLES Final Result [facility] [address] [place] [address], [place] [phone] * Lipid panel with reflex to direct LDL (01/25/2024 3:37 PM EST) [facility] Cholesterol 129 0 - 200 mg/dL LAB CHEMISTRY METHOD 01/25/2024 5:44 PM [facility] Triglycerides 53 0 - 150 mg/dL LAB CHEMISTRY METHOD 01/25/2024 5:44 PM [facility] HDL 63 >=40 mg/dL LAB CHEMISTRY METHOD 01/25/2024 5:44 PM [facility] LDL Calculated 55 0 - 100 mg/dL LAB CHEMISTRY METHOD 01/25/2024 5:44 PM [facility] VLDL Cholesterol Dre 10.6 mg/dL LAB CHEMISTRY METHOD 01/25/2024 5:44 PM [facility] Non HDL Chol. (LDL+VLDL) 66 <145 mg/dL LAB CHEMISTRY METHOD 01/25/2024 5:44 PM [facility] Chol/HDL Ratio 2.0 0.0 - 4.4 LAB CHEMISTRY METHOD 01/25/2024 5:44 PM [facility] Blood Venous blood specimen / Unknown Venipuncture / Unknown 01/25/2024 3:37 PM EST 01/25/2024 3:38 PM EST us Shyanne YANG LAB BLOOD ORDERABLES Final Result [facility] [address] [place] [address], * Hepatitis C Screening (08/11/2022) Pathologist [facility] Hepatitis C Screening Abstracted us Historical Provider HEALTH MAINTENANCE Final Result from Last 3 Months or Most Recently Relevant to Health Maintenance Insurance [facility] [employer] Care Teams Director Life Sciences Relationship Specialty Start Date End Date Mick Dumont MD [address] [place] [address] PCP - General Internal Medicine 03/18/24
--- OUTSIDE RECORDS SUMMARY | 2025-03-10 08:26 | XMS_ITS | Data Portability ---
Author Organization [facility], [id number] Address [address] [place] [address] Assessment No assessment recorded. Plan of Treatment [...] By Organization Details Last Modified Time 06/14/2022 [id number] Patient is cleared physically to participate in school/sports activities without restrictions. Return to [employer] as needed. [email or web address] Not available 06/14/2022 12:09:58 [...] mass index (BMI) Body weight Oxygen saturation Pain severity - 0-10 verbal numeric rating [Score] - Reported Heart rate Respiratory rate Body temperature Systolic And Diastolic Provider Name and Address Organization Details Last Updated DateTime 3 170.82 cm 88 % 26.7 kg/m2 39590.8 9 g 100 % 0 72 /min 20 /min [...] ICD10 Code Diagnosis IMO Codes Diagnosis Note [id number] [address] [place] [address] 04/25/2021 13:19:48 04/25/2021 14:19:45 [id number] Tex Valverde NP [address] [place] [address] 06/14/2022 10:06:52 06/14/2022 12:10:45 History and physical examination, sports participation [id number] Z02.5 Health Concerns Section Related Observation LastModified [...] Valverde NP [address] [place], [address], [place] - [facility] 06/14/2022 12:10:29 OBGyn Episode No OBEpisode recorded.
--- NOTE | 2025-03-10 10:03 | EEG_ITS ---
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 I initially saw her in 2020 mostly for headaches. She was back stating that she had a seizure after long time. She was in her bed watching television when something happened. She remembered sharp feeling in right occipital area and then she found herself after the spell in a confused state. He was also having frequent headaches, almost daily, and sometime more than once. Pain usually was right frontal. 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 Patient is reported awake during the tracing. Background EEG rhythm is about 10 hertz 5-70 microvolt posteriorly lower amplitude fast anteriorly. Photic stimulation does not produce any significant driving. Hyperventilation is unremarkable. Cardiac lead does not reveal any significant abnormality. No sharp wave spikes or paroxysmal tendency noted. Patient transitioned into drowsiness with no significant abnormality. Impression: Unremarkable EEG. KEND
== END 2025-03-10 08:18 | disposition home or self-care (01) ==
LOC: HO.NEURO 08:17
PROVIDERS: PCP Internal Medicine; Visit Provider Psychiatry & Neurology Neurology
DX: G40.909 Epilepsy, unspecified, not intractable, without status epilepticus (principal)
CPT/HCPCS: 95816

== ENCOUNTER → 2025-03-10 10:03 | Outpatient (BNV) | payer OTHER, SELFPAY | PROVIDERS: PCP Internal Medicine; Visit Provider Psychiatry & Neurology Neurology | DX: G40.909 Epilepsy, unspecified, not intractable, without status epilepticus (principal) | CPT/HCPCS: 95816 ==